=== PATIENT | male | born 1995 | race Caucasian/White ===

== ENCOUNTER 2017-11-22 00:11 | Emergency (ER) | payer OTHER ==
[2017-11-22 00:17] VITALS: BP 125/64; PULSE 65; RESP 18; TEMP 98.5
--- NOTE | 2017-11-22 00:24 | ED ---
ENT HPI - General Chief complaint: Dental/Oral Stated complaint: Dental pain Time Seen by Provider: 11/22/17 00:19 Source: patient, RN notes reviewed Mode of arrival: ambulatory Limitations: no limitations - History of Present Illness Initial comments: This is a 22 year old male who presents with a chief complaint of left dental and jaw pain which began 4 days ago and has been worsening. He states he "smacked" the area approximately 1 hour ago and now has severe pain. He denies fever, difficulty swallowing or difficulty breathing. - Related Data Previous Rx's Medication Instructions Recorded Ibuprofen [Motrin] 600 mg PO Q6HR PRN #20 tab 07/24/15 Ibuprofen [Motrin] 600 mg PO Q8HR PRN #30 tab 11/22/17 Penicillin V Potassium [Pen Vee K] 500 mg PO QID #40 tablet 11/22/17 Allergies Allergy/AdvReac Type Severity Reaction Status Date / Time No Known Allergies Allergy Verified 11/22/17 00:17 Review of Systems ROS Statement: Those systems with pertinent positive or pertinent negative responses have been documented in the HPI. ROS Other: All systems not noted in ROS Statement are negative. Past Medical History Past Medical History: No Reported History History of Any Multi-Drug Resistant Organisms: None Reported Past Surgical History: No Surgical Hx Reported Additional Past Surgical History / Comment(s): right ear sx- "patched a whole in ear drum" Past Psychological History: No Psychological Hx Reported Smoking Status: Current every day smoker Past Alcohol Use History: None Reported Past Drug Use History: Marijuana General Exam Limitations: no limitations General appearance: alert, in no apparent distress Head exam: Present: atraumatic, normocephalic, normal inspection Eye exam: Present: normal appearance, PERRL, EOMI. Absent: scleral icterus, conjunctival injection, periorbital swelling ENT exam: Present: mucous membranes moist, TM's normal bilaterally, normal external ear exam. Absent: normal oropharynx (Patient is edentulous, area swelling of the right lower jaw region no drainable abscess) Neck exam: Present: normal inspection, full ROM. Absent: tenderness, meningismus, lymphadenopathy Respiratory exam: Present: normal lung sounds bilaterally. Absent: respiratory distress, wheezes, rales, rhonchi, stridor Cardiovascular Exam: Present: regular rate, normal rhythm, normal heart sounds. Absent: systolic murmur, diastolic murmur, rubs, gallop, clicks Course Vital Signs 11/22/17 00:14 Temperature 98.5 F Pulse Rate 65 Respiratory 18 Rate Blood Pressure 125/64 O2 Sat by Pulse 96 Oximetry Medical Decision Making - Medical Decision Making This 22 year old make presented to the ED with a chief complaint of dental and jaw pain. He was given Motrin 800 to alleviate some pain. Based on history and physical exam, the patient likely has a dental abscess and will be treated with Pen Vee K. The findings and treatment was discussed with the patient. He may continue Motrin 600mg TID as needed for pain. He was strongly advised to follow- up with a dentist for further evaluation and management. Disposition Clinical Impression: Dental caries, Dental abscess Disposition: HOME SELF-CARE Condition: Stable Instructions: Dental Abscess (ED) Additional Instructions: Please return to the Emergency Department if symptoms worsen or any other concerns. Prescriptions: Ibuprofen [Motrin] 600 mg PO Q8HR PRN #30 tab PRN Reason: Pain Penicillin V Potassium [Pen Vee K] 500 mg PO QID #40 tablet Referrals: None,Stated [Primary Care Provider] - 1-2 days Time of Disposition: 00:31
[2017-11-22] MEDS ORDERED: IBUPROFEN 800 MG TAB PO STA (00:25)
[2017-11-22] MEDS ORDERED: PENICILLIN VK 500MG STARTER 4 TAB BTL PO STA (00:30)
== END 2017-11-22 00:50 | disposition home or self-care (01) ==
LOC: EC 00:11
DX: K02.9 Dental caries, unspecified (principal); K04.7 Periapical abscess without sinus; F17.200 Nicotine dependence, unspecified, uncomplicated
CPT/HCPCS: 99282

== ENCOUNTER 2017-11-24 12:58 | Emergency (ER) | payer OTHER ==
[2017-11-24 13:02] VITALS: BP 136/69; PULSE 77; RESP 16; TEMP 98.2
[2017-11-24] MEDS ORDERED: BUPIVACAINE (PF) 0.5% 30 ML VIAL SQ STA (13:34)
--- NOTE | 2017-11-24 13:37 | ED ---
ENT HPI - General Chief complaint: Dental/Oral Stated complaint: Abscess on Jaw Time Seen by Provider: 11/24/17 13:07 Source: patient, RN notes reviewed, old records reviewed Mode of arrival: ambulatory Limitations: no limitations - History of Present Illness Initial comments: This patient is a 22-year-old male presents emergency Department with a chief complaint of a severe abscess over the left side of his jaw. Patient was evaluated 2 days ago and started on Pen-Vee K. He reports that over the past 2 days has became grossly worse. It's more tender over the outside of the strep rather than the inside. Patient states that he is taking the antibiotics he has been prescribed. He has history of very poor dentition. He called the dentist who told him to come in here for drainage. - Related Data Previous Rx's Medication Instructions Recorded Ibuprofen [Motrin] 600 mg PO Q6HR PRN #20 tab 07/24/15 Ibuprofen [Motrin] 600 mg PO Q8HR PRN #30 tab 11/22/17 Penicillin V Potassium [Pen Vee K] 500 mg PO QID #40 tablet 11/22/17 Amoxic-Pot Clav 875-125Mg 1 tab PO Q12HR #20 tablet 11/24/17 [Augmentin 875-125] Allergies Allergy/AdvReac Type Severity Reaction Status Date / Time No Known Allergies Allergy Verified 11/24/17 13:02 Review of Systems ROS Statement: Those systems with pertinent positive or pertinent negative responses have been documented in the HPI. ROS Other: All systems not noted in ROS Statement are negative. Past Medical History Past Medical History: No Reported History History of Any Multi-Drug Resistant Organisms: None Reported Past Surgical History: No Surgical Hx Reported Additional Past Surgical History / Comment(s): right ear sx- "patched a whole in ear drum" Past Psychological History: No Psychological Hx Reported Smoking Status: Current every day smoker Past Alcohol Use History: None Reported Past Drug Use History: Marijuana General Exam - General Exam Comments Initial Comments: 22-year-old male. No distress. Limitations: no limitations General appearance: alert, in no apparent distress Head exam: Present: atraumatic, normocephalic, normal inspection Eye exam: Present: normal appearance, PERRL, EOMI. Absent: scleral icterus, conjunctival injection, periorbital swelling ENT exam: Present: mucous membranes moist. Absent: normal exam, normal oropharynx (poor dentition. Evidence of significant swelling over left lower molar and mandible.) Neck exam: Present: normal inspection. Absent: tenderness, meningismus, lymphadenopathy Respiratory exam: Present: normal lung sounds bilaterally. Absent: respiratory distress, wheezes, rales, rhonchi, stridor Cardiovascular Exam: Present: regular rate, normal rhythm, normal heart sounds. Absent: systolic murmur, diastolic murmur, rubs, gallop, clicks GI/Abdominal exam: Present: soft, normal bowel sounds. Absent: distended, tenderness, guarding, rebound, rigid Extremities exam: Present: normal inspection, full ROM, normal capillary refill. Absent: tenderness, pedal edema, joint swelling, calf tenderness Back exam: Present: normal inspection Neurological exam: Present: alert, oriented X3, CN II-XII intact Psychiatric exam: Present: normal affect, normal mood Course Vital Signs 11/24/17 13:00 Temperature 98.2 F Pulse Rate 77 Respiratory 16 Rate Blood Pressure 136/69 O2 Sat by Pulse 98 Oximetry Procedures - Incision & Drainage Time Out Performed?: Yes Site: oral (left mandible at tooth 12) Size (cm): 6 Anesthetic Used: benzocaine 0.25% Amount (mLs): 3 Scalpel Used: #11 I&D Drainage Obtained: Pus, Blood Culture Obtained?: No Patient Tolerated Procedure: well, no complications Medical Decision Making - Medical Decision Making This patient is a 22-year-old male presents emergency Department with a chief complaint of a severe abscess over the left side of his jaw. Patient was evaluated 2 days ago and started on Pen-Vee K. He reports that over the past 2 days has became grossly worse. It's more tender over the outside of the strep rather than the inside. Patient states that he is taking the antibiotics he has been prescribed. With help of Dr. Albrecht, able to I and D abscess and significant amount of pus was drained and suctioned. Will change patient ot augmentin for antibiotic coverage. He plans to follow up with Dentist. All questions answered and areturn parameters discussed. Disposition Clinical Impression: Dental abscess Disposition: HOME SELF-CARE Instructions: Dental Abscess (ED) Additional Instructions: [facility] [place] [id number] [place] [address] [phone] (existing clients only) For new clients: [phone] 1st consult: $50 (includes Xrays) Usually 30% less then private dentist for visits after. [employer] Have to pay $50 for Xrays anmd rest is covered. [phone] Prescriptions: Amoxic-Pot Clav 875-125Mg [Augmentin 875-125] 1 tab PO Q12HR #20 tablet Referrals: None,Stated [Primary Care Provider] - 1-2 days Keya Carrasco MD [STAFF PHYSICIAN] - 1-2 days Time of Disposition: 14:09
[2017-11-24] MEDS ORDERED: AMOXIC-POT CLAV 875MG STARTER 2 EACH TABLET PO STA (14:10)
--- NOTE | 2017-11-28 08:46 | CDI ---
Documentation Clarification OP Dear Krista Love Please do addendum to ED report for missing Dental procedure Thank you, Anitha Hopkins Transformer Inspector If you have any questions, please contact Photo Graphics Librarian at [phone] [facility]
== END 2017-11-24 14:15 | disposition home or self-care (01) ==
LOC: EC 12:58
DX: K04.7 Periapical abscess without sinus (principal); F17.200 Nicotine dependence, unspecified, uncomplicated
CPT/HCPCS: 41800; 99283

== ENCOUNTER 2020-05-30 12:54 | Emergency (ER) | payer OTHER ==
[2020-05-30] MEDS ORDERED: DIPH,PERTUS(ACELL)TETVAC-LF 0.5 ML VIAL IM ONE (13:03)
[2020-05-30] MEDS ORDERED: MORPHINE SULFATE 4 MG/ML SYRINGE IVP STA (13:04)
[2020-05-30 13:11] VITALS: TEMP 98
[2020-05-30 13:56] LABS: Basophils % (A) 0 %; Eosinophils # (A) 0.1 k/uL (0-0.7); Eosinophils % (A) 2 %; HGB 16.4 gm/dL (13.0-17.5); Lymphocytes # (A) 1.9 k/uL (1.0-4.8); Lymphocytes % (A) 30 %; MCH 29.9 pg (25.0-35.0); MCHC 32.8 g/dL (31.0-37.0); Mean Platelet Volume 12.4; Monocytes # (A) 0.3 k/uL (0-1.0); Monocytes % (A) 4 %; Neutrophils # (A) 4.1 k/uL (1.3-7.7); Neutrophils % (A) 63 %; RBC 5.49 m/uL (4.30-5.90); RDW 13.4 % (11.5-15.5); WBC 6.6 k/uL (3.8-10.6)
[2020-05-30 14:03] LABS: ALT 22 U/L (4-49); AST 39 U/L (17-59); African American GFR (CKD) >90 (>60 ml/min/1.73 sqM); Albumin 4.8 g/dL (3.5-5.0); Alcohol <10 mg/dL; Alkaline Phosphatase 97 U/L (38-126); Anion Gap 11 mmol/L; Blood Urea Nitrogen 12 mg/dL (9-20); Calcium 10.3 mg/dL (8.4-10.2); Carbon Dioxide 20 mmol/L (22-30); Chloride 109 mmol/L (98-107); Glucose 98 mg/dL (74-99); Non-African American GFR(CKD) >90 (>60 ml/min/1.73 sqM); Potassium 4.3 mmol/L (3.5-5.1); Sodium 140 mmol/L (137-145); Total Bilirubin 0.7 mg/dL (0.2-1.3); Total Protein 7.5 g/dL (6.3-8.2)
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
[2020-05-30 14:19] VITALS: RESP 18
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
[2020-05-30 15:40] LABS: Basophils % (A) 0 %; Eosinophils # (A) 0.1 k/uL (0-0.7); Eosinophils % (A) 0 %; HCT 46.6 % (39.0-53.0); HGB 14.9 gm/dL (13.0-17.5); Lymphocytes # (A) 0.9 k/uL (1.0-4.8); Lymphocytes % (A) 6 %; MCH 29.3 pg (25.0-35.0); MCHC 31.9 g/dL (31.0-37.0); MCV 91.7 fL (80.0-100.0); Mean Platelet Volume 8.1; Monocytes # (A) 0.7 k/uL (0-1.0); Monocytes % (A) 5 %; Neutrophils # (A) 13.1 k/uL (1.3-7.7); Neutrophils % (A) 88 %; Platelet Count 162 k/uL (150-450); RBC 5.08 m/uL (4.30-5.90); RDW 13.4 % (11.5-15.5); WBC 14.9 k/uL (3.8-10.6)
[2020-05-30 15:52] LABS: INR 1.1 (<1.2); Partial Thromboplastin Time 24.7 sec (22.0-30.0); Prothrombin Time 11.3 sec (9.0-12.0)
[2020-05-30 16:02] LABS: Amorphous Sediment,Urine Rare /hpf; Appearance,Urine Clear (Clear); Bacteria,Urine Rare /hpf; Bilirubin,Urine Negative (Negative); Blood,Urine Small (Negative); Color,Urine Yellow; Glucose,Urine (UA) Negative (Negative); Ketones,Urine Negative (Negative); Leukocyte Esterase,Urine Negative (Negative); Mucus,Urine Few /hpf; Nitrite,Urine Negative (Negative); Protein,Urine 1+ (Negative); RBC,Urine 3 /hpf (0-5); Squamous Epithelial Cell,Urine <1 /hpf (0-4); Urobilinogen,Urine <2.0 mg/dL (<2.0); WBC,Urine 3 /hpf (0-5)
[2020-05-30 16:04] LABS: Amphetamine Screen,Urine Not Detected (NotDetected); Barbiturate Screen,Urine Not Detected (NotDetected); Benzodiazepines Screen,Urine Not Detected (NotDetected); Cocaine Screen,Urine Not Detected (NotDetected); Methadone Screen, Urine Not Detected (NotDetected); Opiate Screen,Urine Detected (NotDetected); Oxycodone Screen, Urine Not Detected (NotDetected); Phencyclidine Screen,Urine Not Detected (NotDetected); Tricyclic Antidepressant,Urine Not Detected (NotDetected); Urn Cannabinoid Scrn Detected (NotDetected)
[2020-05-30 16:10] LABS: Specific Gravity,Urine >1.050 (1.001-1.035)
[2020-05-30 16:36] VITALS: BP 112/67; PULSE 50
== END 2020-05-30 16:55 | disposition home or self-care (01) ==
LOC: EC 12:54
DX: S01.01XA Laceration without foreign body of scalp, initial encounter (principal); S30.1XXA Contusion of abdominal wall, initial encounter; S70.01XA Contusion of right hip, initial encounter; R00.1 Bradycardia, unspecified; F17.200 Nicotine dependence, unspecified, uncomplicated; V43.52XA Car driver injured in collision with other type car in traffic accident, initial encounter; Y93.89 Activity, other specified; Y92.410 Unspecified street and highway as the place of occurrence of the external cause; Z23 Encounter for immunization
CPT/HCPCS: 99285 ×2; 96374 ×2; 90471 ×2; 12005 ×2; 36415; 93005; 80053; 85025; 85610; 85730; 81001; 80306; 80320; 72170; 71045; 72125; 70450; 74177; 90715; J2270; Q9967

== ENCOUNTER 2020-10-24 21:15 | Emergency (ER) | payer OTHER ==
--- NOTE | 2020-10-24 21:18 | ED ---
ENT HPI - General Stated complaint: Dental Pain Time Seen by Provider: 10/24/20 21:18 - History of Present Illness Initial comments: 25-year-old male presenting to the emergency department with a chief complaint of dental pain. Patient reports an ongoing for the past several days. He states he has not been taking any medication. States this is not the first time he is doing with dental infections. Patient does report some right-sided facial swelling. He denies any night sweats fever or chills. States he has not seen a dentist in quite some time. - Related Data Previous Rx's Medication Instructions Recorded Amoxicillin/Potassium Clav 1 tab PO Q12HR #20 tab 10/24/20 [Augmentin 875-125 Tablet] Allergies Allergy/AdvReac Type Severity Reaction Status Date / Time No Known Allergies Allergy Verified 10/24/20 21:18 Review of Systems ROS Statement: Those systems with pertinent positive or pertinent negative responses have been documented in the HPI. ROS Other: All systems not noted in ROS Statement are negative. Past Medical History Past Medical History: No Reported History History of Any Multi-Drug Resistant Organisms: None Reported Past Surgical History: No Surgical Hx Reported Additional Past Surgical History / Comment(s): right ear sx- "patched a whole in ear drum" Past Psychological History: No Psychological Hx Reported Smoking Status: Current every day smoker Past Alcohol Use History: None Reported Past Drug Use History: Marijuana General Exam Limitations: no limitations General appearance: alert, in no apparent distress Head exam: Present: atraumatic, normocephalic, normal inspection Eye exam: Present: normal appearance, PERRL, EOMI Pupils: Present: normal accommodation ENT exam: Present: normal exam, mucous membranes moist, TM's normal bilaterally, normal external ear exam. Absent: normal oropharynx (Right-sided facial swelling with a periapical abscess noted near tooth #5) Neck exam: Present: normal inspection, full ROM. Absent: tenderness Respiratory exam: Present: normal lung sounds bilaterally. Absent: respiratory distress, wheezes, rales Cardiovascular Exam: Present: regular rate, normal rhythm, normal heart sounds Extremities exam: Present: normal inspection, full ROM, normal capillary refill. Absent: tenderness, pedal edema, joint swelling Back exam: Present: normal inspection, full ROM. Absent: tenderness, CVA tenderness (R), CVA tenderness (L) Neurological exam: Present: alert, oriented X3 Psychiatric exam: Present: normal affect, normal mood Skin exam: Present: warm, dry, intact, normal color Course Vital Signs 10/24/20 21:18 Temperature 99.1 F Pulse Rate 79 Respiratory 19 Rate Blood Pressure 132/76 O2 Sat by Pulse 97 Oximetry Procedures - Incision & Drainage Consent Obtained: verbal consent, written consent Indication: Dental abscess Site: oral Size (cm): 1 Needle Aspiration Performed?: Yes I&D Drainage Obtained: Pus, Blood Culture Obtained?: No Complications: pain, bleeding Patient Tolerated Procedure: well, no complications Medical Decision Making - Medical Decision Making 25-year-old male presenting to the emergency department with a chief complaint dental pain. On physical examination, patient is a dental abscess near tooth #5. Some right-sided facial swelling noted. Vitals are stable. Patient will be started on Augmentin. Incision and drainage performed and successfully drained the large abscess. Will be discharged with a 10 day course of Augmentin. Return parameters discussed the patient was understanding and agreeable. Case discussed with physician. Disposition Clinical Impression: Dental caries, Dental abscess Disposition: HOME SELF-CARE Condition: Stable Instructions (If sedation given, give patient instructions): Dental Abscess (ED) Additional Instructions: Take prescribed medication as directed. Perform multiple salt water rinses daily. Return to emergency department if symptoms worsen. Prescriptions: Amoxicillin/Potassium Clav [Augmentin 875-125 Tablet] 1 tab PO Q12HR #20 tab Is patient prescribed a controlled substance at d/c from ED?: No Referrals: None,Stated [Primary Care Provider] - 1-2 days Time of Disposition: 21:38
[2020-10-24 21:21] VITALS: TEMP 99.1
[2020-10-24] MEDS ORDERED: AMOXIC-POT CLAV 875-125MG 1 EACH TAB PO STA (21:34)
[2020-10-24] MEDS ORDERED: ALBUTEROL HFA INHALER INHALATION STA (21:48)
[2020-10-24] MEDS ORDERED: ALBUTEROL HFA INHALER INHALATION ONE (22:00)
[2020-10-24 22:04] VITALS: BP 134/74; PULSE 80; RESP 22
== END 2020-10-24 22:04 | disposition home or self-care (01) ==
LOC: EC 21:15
DX: K04.7 Periapical abscess without sinus (principal); K02.9 Dental caries, unspecified; F17.200 Nicotine dependence, unspecified, uncomplicated
CPT/HCPCS: 41800; 99282